=== PATIENT | female | born 1930 | race Caucasian/White ===

== ENCOUNTER 2017-02-17 10:27 | Inpatient (IN) | payer MEDICARE, BC ==
[2017-02-17] MEDS: SODIUM CHLORIDE 0.9% FLUSH 10 ML SOL IV SCH ×3 (11:00→17:49)
[2017-02-17 11:22] LABS: BASOPHILS % (AUTO) 1 % (0-3); EOSINOPHILS % (AUTO) 3 % (0-9); HEMATOCRIT 37 % (35-47); MEAN CORPUSCULAR HGB CONC 34.9 gm/dl (32.0-36.0); MEAN CORPUSCULAR VOLUME 89 fL (81-99); MONOCYTES % (AUTO) 13.2 % (0-12); NEUTROPHILS % (AUTO) 68.2 % (37-80)
[2017-02-17 11:27] LABS: ALBUMIN 3.4 gm/dl (3.4-5.0); CALCIUM 9.3 mg/dl (8.5-10.1); POTASSIUM 4.1 mMol/L (3.5-5.1)
[2017-02-17] MEDS ORDERED: SODIUM CHLORIDE 0.9% 1000ML 1,000 ML IV ONE (11:30)
[2017-02-17] MEDS ORDERED: ACETAMINOPHEN 325 MG PO PRN (12:01)
[2017-02-17] MEDS ORDERED: ALUMINUM/MAGNESIUM 30 ML SUS PO PRN (12:01)
[2017-02-17 12:39] LABS: APPEARANCE,URINE Cloudy; BILIRUBIN,URINE NEGATIVE (NEGATIVE); COLOR,URINE Yellow; GLUCOSE, URINE (UA) NEGATIVE (NEGATIVE); KETONES,URINE NEGATIVE (NEGATIVE); LEUKOCYTE ESTERASE ,URINE NEGATIVE (NEGATIVE); NITRATE,URINE NEGATIVE (NEGATIVE); OCCULT BLOOD,URINE NEGATIVE (NEG-TRACE); PH,URINE 8.5; UROBILINOGEN,URINE 0.2 (0.2-1.0 EU)
[2017-02-17 12:51] LABS: RBC,URINE NEGATIVE (0-3AV/HPF); WBC,URINE NEGATIVE (0-5AV/HPF)
[2017-02-17] MEDS: APAP/HYDROCODONE 325/5 TAB PO SCH ×2 (14:30→22:46)
[2017-02-17] MEDS: ACETAMINOPHEN 325 MG PO SCH ×2 (14:30→22:46)
[2017-02-17] MEDS ORDERED: MORPHINE SULFATE 10 MG/ML SOL ONE (15:17)
[2017-02-17] MEDS: LORAZEPAM 0.5 MG TAB PO PRN (15:21)
[2017-02-17] MEDS: MORPHINE SULFATE 10 MG/ML SOL IV PRN (15:21)
[2017-02-17] MEDS: CARBIDOPA/LEVODOPA 25/100 TAB PO SCH ×2 (15:40→22:43)
[2017-02-17] MEDS: DEXTROSE/SALINE 0.45% 1,000 ML IV SCH (16:58)
[2017-02-17] MEDS ORDERED: CITALOPRAM 20 MG TAB PO SCH (21:00)
[2017-02-17] MEDS: MAGNESIUM OXIDE 400 MG TAB PO SCH (22:46)
[2017-02-17] MEDS: DULOXETINE HCL 30 MG CAPSULE.DR PO SCH (22:46)
[2017-02-17] MEDS: PEG-400/PROPYLENE GLYCOL 1 DROP SOL OP SCH (22:47)
[2017-02-18] MEDS: DEXTROSE/SALINE 0.45% 1,000 ML IV SCH ×3 (01:02→19:37)
[2017-02-18] MEDS: SODIUM CHLORIDE 0.9% FLUSH 10 ML SOL IV SCH ×3 (04:57→19:58)
[2017-02-18] MEDS: ONDANSETRON HCL 4 MG/2 ML SOL IV PRN (05:05)
[2017-02-18] MEDS: LORAZEPAM 0.5 MG TAB PO PRN (05:10)
[2017-02-18] MEDS ORDERED: MORPHINE SULFATE 10 MG/ML SOL ONE (05:48)
[2017-02-18] MEDS: MORPHINE SULFATE 10 MG/ML SOL IV PRN (05:53)
[2017-02-18] MEDS: CARBIDOPA/LEVODOPA 25/100 TAB PO SCH ×4 (05:59→17:58)
[2017-02-18] MEDS ORDERED: BISACODYL 5 MG TAB ECT PO ONE (07:36)
[2017-02-18] MEDS: PANTOPRAZOLE SODIUM 40 MG ECT PO SCH (11:10)
[2017-02-18] MEDS: POLYETHYLENE GLYCOL 17 GM/1 TBS PDS PO SCH (11:10)
[2017-02-18] MEDS: ACETAMINOPHEN 325 MG PO SCH ×3 (11:11→19:59)
[2017-02-18] MEDS: DULOXETINE HCL 30 MG CAPSULE.DR PO SCH ×2 (11:11→19:59)
[2017-02-18] MEDS: DONEPEZIL 5 MG 5 MG TAB PO SCH (11:11)
[2017-02-18] MEDS: MAGNESIUM OXIDE 400 MG TAB PO SCH ×2 (11:11→19:59)
[2017-02-18] MEDS: FLUTICASONE PROPIONATE SPR NAS SCH ×2 (11:13→14:55)
[2017-02-18] MEDS: APAP/HYDROCODONE 325/5 TAB PO SCH ×3 (11:16→21:00)
[2017-02-18] MEDS: PEG-400/PROPYLENE GLYCOL 1 DROP SOL OP SCH (19:59)
[2017-02-19] MEDS ORDERED: MORPHINE SULFATE 10 MG/ML SOL ONE ×3 (00:35→18:02)
[2017-02-19] MEDS: MORPHINE SULFATE 10 MG/ML SOL IV PRN ×3 (00:37→18:06)
[2017-02-19] MEDS: SODIUM CHLORIDE 0.9% FLUSH 10 ML SOL IV SCH ×5 (00:39→16:54)
[2017-02-19] MEDS: DEXTROSE/SALINE 0.45% 1,000 ML IV SCH ×4 (04:42→21:39)
[2017-02-19] MEDS: LORAZEPAM 0.5 MG TAB PO PRN (05:14)
[2017-02-19] MEDS: CARBIDOPA/LEVODOPA 25/100 TAB PO SCH ×4 (05:55→17:24)
[2017-02-19] MEDS ORDERED: MAGNESIUM CITRATE SOL PO ONE (08:29)
[2017-02-19] MEDS: OXYCODONE HYDROCHLORIDE 5 MG TAB PO SCH ×4 (08:45→21:34)
[2017-02-19] MEDS: POLYETHYLENE GLYCOL 17 GM/1 TBS PDS PO SCH (09:08)
[2017-02-19] MEDS: PANTOPRAZOLE SODIUM 40 MG ECT PO SCH (09:08)
[2017-02-19] MEDS: MAGNESIUM OXIDE 400 MG TAB PO SCH ×2 (09:09→21:33)
[2017-02-19] MEDS: DULOXETINE HCL 30 MG CAPSULE.DR PO SCH ×2 (09:09→21:33)
[2017-02-19] MEDS: ACETAMINOPHEN 325 MG PO SCH ×3 (09:09→21:34)
[2017-02-19] MEDS: DONEPEZIL 5 MG 5 MG TAB PO SCH (09:09)
[2017-02-19] MEDS: FLUTICASONE PROPIONATE SPR NAS SCH (09:11)
[2017-02-19 18:15] VITALS: O2SAT 93
[2017-02-19] MEDS: PEG-400/PROPYLENE GLYCOL 1 DROP SOL OP SCH (21:32)
[2017-02-20] MEDS: SODIUM CHLORIDE 0.9% FLUSH 10 ML SOL IV SCH ×2 (00:49→09:19)
[2017-02-20] MEDS: LORAZEPAM 0.5 MG TAB PO PRN (02:17)
[2017-02-20] MEDS: DEXTROSE/SALINE 0.45% 1,000 ML IV SCH (06:00)
[2017-02-20] MEDS: CARBIDOPA/LEVODOPA 25/100 TAB PO SCH ×2 (06:00→09:20)
[2017-02-20 07:30] LABS: BASOPHILS % (AUTO) 1 % (0-3); CALCIUM 8.7 mg/dl (8.5-10.1); EOSINOPHILS % (AUTO) 3 % (0-9); HEMATOCRIT 35 % (35-47); MEAN CORPUSCULAR HGB CONC 35.4 gm/dl (32.0-36.0); MEAN CORPUSCULAR VOLUME 88 fL (81-99); MONOCYTES % (AUTO) 11.2 % (0-12); NEUTROPHILS % (AUTO) 73.4 % (37-80)
[2017-02-20 07:33] LABS: POTASSIUM 2.8 mMol/L (3.5-5.1)
[2017-02-20] MEDS ORDERED: POTASSIUM CHLORIDE 2 MEQ/ML 60 MEQ, LIDOCAINE HCL 1% MDV 2 ML in SODIUM CHLORIDE 0.9% 1... IV ONE (08:37)
[2017-02-20] MEDS ORDERED: DEXTROSE/SALINE 0.45/KCL 20MEQ 1,000 ML/1,000 ML SOL IV SCH (08:45)
[2017-02-20 09:14] VITALS: BP 168/94; PULSE 85; RESP 16; TEMP 97.9
[2017-02-20] MEDS: DULOXETINE HCL 30 MG CAPSULE.DR PO SCH (09:16)
[2017-02-20] MEDS: DONEPEZIL 5 MG 5 MG TAB PO SCH (09:17)
[2017-02-20] MEDS: POLYETHYLENE GLYCOL 17 GM/1 TBS PDS PO SCH (09:18)
[2017-02-20] MEDS: FLUTICASONE PROPIONATE SPR NAS SCH (09:18)
[2017-02-20] MEDS: OXYCODONE HYDROCHLORIDE 5 MG TAB PO SCH (09:18)
[2017-02-20] MEDS: ACETAMINOPHEN 325 MG PO SCH (09:19)
[2017-02-20] MEDS: MAGNESIUM OXIDE 400 MG TAB PO SCH (09:19)
[2017-02-20] MEDS: PANTOPRAZOLE SODIUM 40 MG ECT PO SCH (09:19)
[2017-02-20] MEDS ORDERED: LIDOCAINE HCL 1% MPF SOL ONE (09:53)
[2017-02-20] MEDS ORDERED: POTASSIUM CHLORIDE 2 MEQ/ML SOL IV ONE ×2 (09:54→10:34)
[2017-02-20] MEDS: ONDANSETRON HCL 4 MG/2 ML SOL IV PRN (10:28)
== END 2017-02-20 10:45 | disposition short-term general hospital (02) | DRG 552 ==
LOC: ACUTE CARE 10:41
PROVIDERS: ADMIT Family Medicine; ATTEND Family Medicine
DX: M47.816 Spondylosis without myelopathy or radiculopathy, lumbar region (principal); G20 Parkinson's disease; R10.84 Generalized abdominal pain; K59.09 Other constipation; I10 Essential (primary) hypertension; R51 Headache; E87.6 Hypokalemia
CPT/HCPCS: 36415; 70450; 74177; 80048; 80053; 81001; 85025; 99070; J2270; J2405; J3480; Q9967; J2001